=== PATIENT | male | born 1985 | race Caucasian/White ===

== ENCOUNTER 2018-06-02 17:01 | Emergency (ER) | payer MEDICAID ==
[~2018-06-02] VITALS: Ht 177.8 cm; Wt 75.7 kg
[2018-06-02 18:37] VITALS: BP 127/64
== END 2018-06-02 20:47 | disposition left against medical advice (07) ==
LOC: ER 17:01
DX: M79.601 Pain in right arm (principal); Z53.21 Procedure and treatment not carried out due to patient leaving prior to being seen by health care provider
CPT/HCPCS: 71046; 73030

== ENCOUNTER 2019-10-05 14:46 | Inpatient (IN) | payer MEDICAID ==
[~2019-10-05] VITALS: Ht 175.3 cm; Wt 79.6 kg
[2019-10-05 15:18] LABS: Urine Bacteria NONE SEEN /hpf (None Seen); Urine Blood 2+ /uL (Negative); Urine Specific Gravity 1.043 (1.001-1.035)
[2019-10-05 15:22] LABS: Basophils # (auto) 0.1 10 ^3/uL (0-0.2); Basophils % (auto) 2.2 % (0.0-2.0); Eosinophils # (auto) 0.1 10 ^3/uL (0-0.8); Eosinophils % (auto) 3.4 % (0.0-7.0); Lymphocytes # (auto) 0.7 10 ^3/uL (0.4-5.4); Monocytes # (auto) 0.6 10 ^3/uL (0-1.3); Monocytes % (auto) 16.3 % (0.0-12.0); Red Cell Distribution Width 14.1 % (11.8-14.3); White Blood Cell 3.5 10^3/uL (4.4-10.8)
[2019-10-05 15:24] LABS: Hemoglobin 12.8 g/dL (13.5-17.5); Lymphocytes % (auto) 19.7 % (10.0-50.0); Mean Corpuscular Hemoglobin 36.4 pg (28.0-32.0); Mean Corpuscular Hgb Conc. 34.7 g/dL (32.0-36.0); Mean Corpuscular Volume 104.8 fL (80.0-100.0); Neutrophils # (auto) 2.1 10 ^3/uL (1.6-8.6); Neutrophils % (auto) 58.4 % (37.0-80.0); Platelet Count (auto) 67 10^3/uL (140-450); Red Blood Cells 3.53 10^6/uL (4.5-5.90)
[2019-10-05 15:25] LABS: Urine WBC 1 /hpf (0 - 3)
[2019-10-05 15:26] LABS: Urine Hyaline Cast 0-1 /lpf (0 - 2); Urine Mucus FEW (None Seen)
[2019-10-05] MEDS ORDERED: SODIUM CHLORIDE 0.9% 1,000 ML IVB ONE (15:28)
[2019-10-05] MEDS ORDERED: ONDANSETRON HCL 4 MG/2 ML VIAL IV ONE (15:30)
[2019-10-05] MEDS ORDERED: KETOROLAC TROMETH 30 MG/ML 1ML VIAL IV ONE (15:30)
[2019-10-05 15:41] LABS: Albumin 3.6 g/dL (3.4-5.0); Calcium 8.7 mg/dL (8.5-10.1); Potassium 3.5 mmol/L (3.5-5.1)
[2019-10-05 15:45] LABS: Bilirubin, Total 0.6 mg/dL (0.2-1.0); Total Protein 7.6 g/dL (6.4-8.2)
[2019-10-05 15:53] LABS: Magnesium 1.6 mg/dL (1.6-2.6)
[2019-10-05 16:29] LABS: BUN/Creatinine Ratio 4.7
[2019-10-05] MEDS ORDERED: metroNIDAZOLE 500MG/100ML 100 ML IV ONE (16:30)
[2019-10-05] MEDS ORDERED: LORazepam 2MG/ML-1ML VIAL IV PRN ×2 (18:15→21:15)
[2019-10-05] MEDS ORDERED: PROMETHAZINE HCL 25 MG/ML 1ML IV PRN (18:15)
[2019-10-05] MEDS ORDERED: cefTRIAXone 1GM/50ML D5W 50 ML IV ONE (18:15)
[2019-10-05] MEDS ORDERED: MORPHINE SULF INJ 2 MG/ML SYRINGE 1ML IV PRN (18:15)
[2019-10-05] MEDS ORDERED: THIAMINE 100mg/ml INJ (200mg/2ml VIAL) IV ONE (18:15)
[2019-10-05] MEDS: SODIUM CHLORIDE 0.9% 1,000 ML IV SCH (18:36)
[2019-10-05] MEDS: MORPHINE SULF INJ 2 MG/ML SYRINGE 1ML IV PRN ×2 (19:10→23:33)
--- NOTE | 2019-10-05 19:34 | NUR ---
MS admit from ER Patient admitted to tele/MS. Patient oriented to primary RN, unit, room, bed, and unit policies regarding patient care and visiting hours. Patient weighed by bedscale and encouraged to call if they need something. All questions and concerns addressed, patient verbalized understanding. Safety precautions maintained bed is in lowest position and locked, bed rails 2x. Call light and bed side table are within reach.
[2019-10-05 20:00] VITALS: BP 129/85
--- NOTE | 2019-10-05 21:10 | NUR ---
Call back from hospitalist Received new orders. Orders inputed, will continue to monitor patient Q1 and PRN.
[2019-10-05] MEDS ORDERED: chlordiazePOXIDE HCL 25 MG CAP PO PRN (21:15)
[2019-10-05] MEDS ORDERED: FOLIC ACID 1 MG, MULTIPLE VITAMIN 10 ML, MAGNESIUM SULF SDV 50% 8 MEQ, THIAMINE INJ 100... INJ ONE ×5 (21:30)
[2019-10-05 22:02] VITALS: BP 129/85
[2019-10-05] MEDS: FAMOTIDINE (10MG/ML) 2ML VL IV SCH (23:34)
[2019-10-05] MEDS: metroNIDAZOLE 500MG/100ML 100 ML IV SCH (23:34)
[2019-10-06] MEDS: SODIUM CHLORIDE 0.9% 1,000 ML IV SCH ×4 (01:11→21:10)
[2019-10-06] MEDS ORDERED: THIAMINE 100mg/ml INJ (200mg/2ml VIAL) ONE (01:27)
--- NOTE | 2019-10-06 01:45 | NUR ---
Call back from hospitalist New orders received and inputed. Will continue to monitor patient Q1 and PRN.
[2019-10-06] MEDS: metroNIDAZOLE 500MG/100ML 100 ML IV SCH ×3 (05:06→22:00)
[2019-10-06 05:37] VITALS: BP 148/86
[2019-10-06 06:34] LABS: Basophils # (auto) 0 10 ^3/uL (0-0.2); Eosinophils # (auto) 0.1 10 ^3/uL (0-0.8); Lymphocytes # (auto) 0.4 10 ^3/uL (0.4-5.4); Monocytes # (auto) 0.4 10 ^3/uL (0-1.3); Platelet Count (auto) 45 10^3/uL (140-450); Red Cell Distribution Width 14.3 % (11.8-14.3)
[2019-10-06 06:36] LABS: Basophils % (auto) 1.4 % (0.0-2.0); Hematocrit 33.3 % (41.0-53.0); Hemoglobin 11.3 g/dL (13.5-17.5); Lymphocytes % (auto) 16.1 % (10.0-50.0); Mean Corpuscular Hemoglobin 36.1 pg (28.0-32.0); Mean Corpuscular Volume 106.2 fL (80.0-100.0); Monocytes % (auto) 16.1 % (0.0-12.0); Neutrophils # (auto) 1.6 10 ^3/uL (1.6-8.6); Neutrophils % (auto) 63.4 % (37.0-80.0); Nucleated Red Blood Cells % 0.1 %; Red Blood Cells 3.13 10^6/uL (4.5-5.90); White Blood Cell 2.5 10^3/uL (4.4-10.8)
[2019-10-06 06:52] LABS: Albumin 2.9 g/dL (3.4-5.0); Calcium 7.5 mg/dL (8.5-10.1); Potassium 3.5 mmol/L (3.5-5.1)
[2019-10-06 06:55] LABS: BUN/Creatinine Ratio 6.1; Bilirubin, Total 1.3 mg/dL (0.2-1.0); Total Protein 6.4 g/dL (6.4-8.2)
--- NOTE | 2019-10-06 08:06 | NUR ---
OPENING SHIFT NOTE Assumed care of patient. PT is awake and alert. No S/S of distress/SOB. Instructed on POC and to call for assist PRN, will continue to monitor for changes Q1hr and PRN. Safety precautions in place bed is in lowest position and locked, bed rails 2x. Call light and bedside table are within reach.
[2019-10-06 09:00] VITALS: BP 141/98
[2019-10-06] MEDS ORDERED: cefTRIAXone 1GM/50ML D5W 50 ML IV SCH (09:00)
[2019-10-06] MEDS ORDERED: FOLIC ACID 1 MG TAB PO SCH (10:00)
[2019-10-06] MEDS ORDERED: CYANOCOBALAMIN 500 MCG TAB PO SCH (10:00)
[2019-10-06] MEDS ORDERED: THIAMINE 100mg/ml INJ (200mg/2ml VIAL) IV SCH (10:00)
[2019-10-06] MEDS: FAMOTIDINE (10MG/ML) 2ML VL IV SCH ×2 (11:07→22:00)
[2019-10-06] MEDS: MORPHINE SULF INJ 2 MG/ML SYRINGE 1ML IV PRN (11:08)
[2019-10-06 13:00] VITALS: BP 135/77
[2019-10-06] MEDS ORDERED: chlordiazePOXIDE HCL 25 MG CAP PO ONE (13:00)
[2019-10-06] MEDS ORDERED: GAB100C PO ×2 (13:42)
[2019-10-06] MEDS ORDERED: FOLI1TAB6 PO ×2 (13:42)
[2019-10-06] MEDS ORDERED: THIA50CA PO ×2 (13:42)
[2019-10-06] MEDS ORDERED: CHL10C PO ×2 (13:42)
[2019-10-06] MEDS ORDERED: METR500T PO ×2 (13:42)
[2019-10-06] MEDS ORDERED: LEVO500T21 PO ×2 (13:42)
[2019-10-06] MEDS ORDERED: GABAPENTIN 100 MG CAP PO ONE (13:45)
--- NOTE | 2019-10-06 15:44 | NUR ---
AT THE BEDSIDE COVERING FOR PRIMARY RN WILL. DR. Juan Luis GONZALEZ AT THE BEDSIDE. PER DR. GONZALEZ PATIENT MUST TOLERATE SOFT DIET AND BE AFEBRILE BEFORE DISCHARGE. IF PATIENT HAS A FEVER AND/OR DOES NOT TOLERATE SOFT DIET, HOLD DISCHARGE AND CONTACT DR. ANDREW. WILL ENDORSE TO PRIMARY RN.
[2019-10-06 17:00] VITALS: BP 140/94
[2019-10-06] MEDS: ACETAMINOPHEN 325 MG TAB PO PRN (17:00)
--- NOTE | 2019-10-06 17:00 | NUR ---
NOTIFIED MD Clara ANDREW OF ELEVATED TEMPERATURE. ADMINISTERED PRN MEDICATION PER ORDERS AND INITIATED COOLING MEASURES. WILL REASSESS PT.
[2019-10-06] MEDS: chlordiazePOXIDE HCL 25 MG CAP PO SCH (17:51)
--- NOTE | 2019-10-06 18:39 | NUR ---
REASSESSED PT TEMP IS 100.0. PT REPORTED THAT HE WAS NON COMPLIANT WITH COOLING MEASURES. STATED THAT HE ONLY KEPT ICE PACKS APPLIED FOR "15 MINUTES". WILL ENDORSE TO NIGHT NURSE.
--- NOTE | 2019-10-06 19:30 | NUR ---
Elevated temp 100.6F Cooling measures continued, Will continue to monitor patient Q1 and PRN.
--- NOTE | 2019-10-06 20:20 | NUR ---
Temperature assessment 99.8F. Will continue cooling measures and monitor Q1 and PRN. Left a voicemail to Dr. Tor Garsia in regards to persistent elevated temp, holding off on discharge until verification received that its ok to discharge at this time . Awaiting call back. At this time patient is able to tolerate soft diet and has no s/s of distress or SOB. Will continue to monitor patient Q1 and PRN.
[2019-10-06 22:00] VITALS: BP 150/99
--- NOTE | 2019-10-06 22:18 | NUR ---
Received call back from Dr. Tor Garsia Per MD will hold discharge until morning, ordered to continue Tylenol 650mg Q4 for elevated temperature and to administer NS 1L, 1 bolus at this time, orders inputed. Will continue to monitor patient Q1 and PRN.
[2019-10-06] MEDS ORDERED: SODIUM CHLORIDE 0.9% 1,000 ML IV ONE (22:30)
[2019-10-07] MEDS: chlordiazePOXIDE HCL 25 MG CAP PO SCH ×2 (00:12→06:00)
[2019-10-07] MEDS: ACETAMINOPHEN 325 MG TAB PO PRN (00:14)
--- NOTE | 2019-10-07 00:14 | NUR ---
Elevated temperature 100.4. Medicated per MD orders and continued cooling measures. Will continue to monitor patient Q1 and PRN.
--- NOTE | 2019-10-07 01:15 | NUR ---
Temperature Assessment 99.6 F, cooling measures continued, will continue to monitor Q1 and PRN
[2019-10-07] MEDS: SODIUM CHLORIDE 0.9% 1,000 ML IV SCH (03:31)
[2019-10-07 05:00] VITALS: BP 144/98
--- NOTE | 2019-10-07 05:00 | NUR ---
At this time patient temperature is within baseline 98.6F. Will continue to monitor Q1 and PRN.
[2019-10-07] MEDS: metroNIDAZOLE 500MG/100ML 100 ML IV SCH (06:00)
--- NOTE | 2019-10-07 06:00 | NUR ---
IV removal IV DC'd with sterile technique, catheter fully intact. Pressure dressing applied to site. Patient tolerated procedure well. Awaiting discharge.
--- NOTE | 2019-10-07 08:20 | NUR ---
Discharge instructions given as ordered. Encourage to follow up with PMD as instructed. All questions and concerns addressed. Patient verbalized understanding. Medication reconciliation form completed and copy given to patient. Home medications held in Pharmacy returned to patient, and needed vaccines given. IV removed with catheter intact, pressure dressing applied, putnam catheter removed. Telemetry unit returned to ICU. Patient taken to vehicle via wheelchair with all personal belongings, accompanied by staff and family member. No distress noted at time of departure. Addendum: 10/07/19 at 0843 by REECE JOEL RN Discharge instructions given as ordered. Encourage to follow up with PMD as instructed. All questions and concerns addressed. Patient verbalized understanding. Medication reconciliation form completed and copy given to patient. IV removed with catheter intact, pressure dressing applied. Patient left with all personal belongings. No distress noted at time of departure.
--- NOTE | 2019-10-07 11:00 | NUR ---
Assessment Patient discharge prior to assessment. Regarding SS consult for home health safety evaluation. faxed clinical information to [facility]. Per [place] with [facility] patient has been accepted and service to start within 24-48hrs upon d/c day. Obtain authorization from [facility] [id number].
== END 2019-10-07 02:23 | disposition home health service (06) | DRG 249 ==
LOC: ER 14:46 → OVERFLOW 14:47 → CENTRAL 19:30
PROVIDERS: ADMIT Internal Medicine; ATTEND Internal Medicine
DX: K52.9 Noninfective gastroenteritis and colitis, unspecified (principal); K85.20 Alcohol induced acute pancreatitis without necrosis or infection; D61.818 Other pancytopenia; K75.81 Nonalcoholic steatohepatitis (NASH); F17.210 Nicotine dependence, cigarettes, uncomplicated; D50.8 Other iron deficiency anemias; F10.20 Alcohol dependence, uncomplicated; Z82.49 Family history of ischemic heart disease and other diseases of the circulatory system; Z87.442 Personal history of urinary calculi; Z79.899 Other long term (current) drug therapy; Y90.9 Presence of alcohol in blood, level not specified; R74.0 Nonspecific elevation of levels of transaminase and lactic acid dehydrogenase [LDH]
CPT/HCPCS: 36415; 71046; 74176; 76705; 80053; 81001; 82150; 83690; 83735; 85025; 96361; 96365; 96367; 96375; G0378; J0696; J1885; J2405; J3490

== ENCOUNTER 2019-12-18 14:57 | Emergency (ER) | payer MEDICAID ==
[~2019-12-18] VITALS: Ht 177.8 cm; Wt 81.6 kg
[~2019-12-18 14:57] MED LIST: CHL10C PO; FOLI1TAB6 PO; GAB100C PO; LEVO500T21 PO; METR500T PO; THIA50CA PO
[2019-12-18] MEDS ORDERED: SODIUM CHLORIDE 0.9% 1,000 ML IV ONE ×2 (15:05)
[2019-12-18] MEDS ORDERED: ONDANSETRON HCL 4 MG/2 ML VIAL IV ONE (15:15)
[2019-12-18] MEDS ORDERED: chlordiazePOXIDE HCL 5 MG CAP PO ONE (15:15)
[2019-12-18] MEDS ORDERED: THIAMINE 100mg/ml INJ (200mg/2ml VIAL) IV ONE (15:15)
[2019-12-18 15:43] LABS: Basophils # (auto) 0 10 ^3/uL (0-0.2); Basophils % (auto) 0.5 % (0.0-2.0); Eosinophils # (auto) 0 10 ^3/uL (0-0.8); Eosinophils % (auto) 0.3 % (0.0-7.0); Hematocrit 45.8 % (41.0-53.0); Hemoglobin 15.6 g/dL (13.5-17.5); Lymphocytes # (auto) 1.4 10 ^3/uL (0.4-5.4); Lymphocytes % (auto) 15.2 % (10.0-50.0); Mean Corpuscular Hemoglobin 30.9 pg (28.0-32.0); Mean Corpuscular Hgb Conc. 34.2 g/dL (32.0-36.0); Mean Corpuscular Volume 90.6 fL (80.0-100.0); Monocytes # (auto) 0.7 10 ^3/uL (0-1.3); Monocytes % (auto) 7.6 % (0.0-12.0); Neutrophils # (auto) 6.9 10 ^3/uL (1.6-8.6); Neutrophils % (auto) 76.4 % (37.0-80.0); Nucleated Red Blood Cells % 0.8 %; Platelet Count (auto) 276 10^3/uL (140-450); Red Blood Cells 5.06 10^6/uL (4.5-5.90); Red Cell Distribution Width 13.2 % (11.8-14.3)
[2019-12-18 16:48] LABS: Albumin 3.8 g/dL (3.4-5.0); Calcium 9.3 mg/dL (8.5-10.1); Potassium 3.9 mmol/L (3.5-5.1)
[2019-12-18 16:51] LABS: BUN/Creatinine Ratio 10.2; Total Protein 7.6 g/dL (6.4-8.2)
[2019-12-18 21:12] LABS: Urine Bacteria FEW /hpf (None Seen); Urine Blood Negative /uL (Negative); Urine Mucus FEW (None Seen); Urine WBC 1 /hpf (0 - 3)
[2019-12-18] MEDS ORDERED: LORazepam 2MG/ML-1ML VIAL IV ONE (21:15)
[2019-12-19 01:00] VITALS: BP 120/74
== END 2019-12-19 00:44 | disposition home or self-care (01) ==
LOC: ER 14:57 → EDBD 14:57 → ER 12-19 00:44
DX: E86.0 Dehydration (principal); F10.10 Alcohol abuse, uncomplicated; F17.210 Nicotine dependence, cigarettes, uncomplicated; Z87.442 Personal history of urinary calculi
CPT/HCPCS: 36415; 71046; 80053; 80320; 81001; 85025; 96361; 96374; 96375; 99285; J2060; J2405; J3411; J7030

== ENCOUNTER 2020-05-23 14:26 | Emergency (ER) | payer MEDICAID ==
[~2020-05-23] VITALS: Ht 175.3 cm; Wt 88.5 kg
[2020-05-23 17:08] LABS: Basophils # (auto) 0 10 ^3/uL (0-0.2); Basophils % (auto) 0.2 % (0.0-2.0); Eosinophils # (auto) 0 10 ^3/uL (0-0.8); Hematocrit 48.7 % (41.0-53.0); Hemoglobin 17.3 g/dL (13.5-17.5); Lymphocytes # (auto) 1.4 10 ^3/uL (0.4-5.4); Lymphocytes % (auto) 17.3 % (10.0-50.0); Mean Corpuscular Hemoglobin 32.4 pg (28.0-32.0); Mean Corpuscular Hgb Conc. 35.5 g/dL (32.0-36.0); Mean Corpuscular Volume 91.5 fL (80.0-100.0); Monocytes # (auto) 0.4 10 ^3/uL (0-1.3); Monocytes % (auto) 5.4 % (0.0-12.0); Neutrophils % (auto) 77.1 % (37.0-80.0); Platelet Count (auto) 272 10^3/uL (140-450); Red Blood Cells 5.32 10^6/uL (4.5-5.90); Red Cell Distribution Width 12.4 % (11.8-14.3); White Blood Cell 7.8 10^3/uL (4.4-10.8)
[2020-05-23 17:25] LABS: Albumin 4.7 g/dL (3.4-5.0); Calcium 9.7 mg/dL (8.5-10.1); Potassium 4.5 mmol/L (3.5-5.1)
[2020-05-23 17:29] LABS: BUN/Creatinine Ratio 11.7; Bilirubin, Total 0.8 mg/dL (0.2-1.0); Total Protein 8.4 g/dL (6.4-8.2)
[2020-05-23 18:21] VITALS: BP 133/92
== END 2020-05-23 18:22 | disposition home or self-care (01) ==
LOC: ER 14:26
DX: R10.9 Unspecified abdominal pain (principal); F17.210 Nicotine dependence, cigarettes, uncomplicated; F12.10 Cannabis abuse, uncomplicated; Z87.442 Personal history of urinary calculi
CPT/HCPCS: 36415; 74176; 80053; 85025

== ENCOUNTER 2020-06-02 08:50 | Emergency (ER) | payer MEDICAID ==
[~2020-06-02] VITALS: Ht 175.3 cm; Wt 86.2 kg
[2020-06-02 08:53] VITALS: BP 148/99
[2020-06-02 09:50] LABS: Basophils # (auto) 0 10 ^3/uL (0-0.2); Basophils % (auto) 0.3 % (0.0-2.0); Eosinophils # (auto) 0.1 10 ^3/uL (0-0.8); Eosinophils % (auto) 1.1 % (0.0-7.0); Hematocrit 49.5 % (41.0-53.0); Hemoglobin 16.7 g/dL (13.5-17.5); Lymphocytes # (auto) 2.2 10 ^3/uL (0.4-5.4); Lymphocytes % (auto) 32.8 % (10.0-50.0); Mean Corpuscular Hgb Conc. 33.8 g/dL (32.0-36.0); Mean Corpuscular Volume 91.8 fL (80.0-100.0); Monocytes # (auto) 0.5 10 ^3/uL (0-1.3); Monocytes % (auto) 7.4 % (0.0-12.0); Neutrophils # (auto) 3.9 10 ^3/uL (1.6-8.6); Neutrophils % (auto) 58.4 % (37.0-80.0); Nucleated Red Blood Cells % 0.1 %; Platelet Count (auto) 274 10^3/uL (140-450); Red Blood Cells 5.39 10^6/uL (4.5-5.90); Red Cell Distribution Width 12.5 % (11.8-14.3); White Blood Cell 6.6 10^3/uL (4.4-10.8)
[2020-06-02 09:59] LABS: Albumin 4.2 g/dL (3.4-5.0); Calcium 9.6 mg/dL (8.5-10.1)
[2020-06-02 10:03] LABS: BUN/Creatinine Ratio 13.3; Bilirubin, Total 0.6 mg/dL (0.2-1.0); Total Protein 7.5 g/dL (6.4-8.2)
[2020-06-02 10:05] LABS: INR 1.07 (0.9-1.15); Partial Thromboplastin Time 27.4 sec (23.0-31.2)
== END 2020-06-02 15:29 | disposition home or self-care (01) ==
LOC: ER 08:50
DX: R10.9 Unspecified abdominal pain (principal); R11.2 Nausea with vomiting, unspecified; F17.210 Nicotine dependence, cigarettes, uncomplicated; Z79.899 Other long term (current) drug therapy
CPT/HCPCS: 36415; 74176; 80053; 83690; 85025; 85610; 85730

== ENCOUNTER 2022-10-17 02:14 | Emergency (ER) | payer MEDICAID ==
[~2022-10-17] VITALS: Ht 175.3 cm; Wt 67.2 kg
[~2022-10-17 02:14] MED LIST changes: +FOLI-119 PO; -FOLI1TAB6 PO; -LEVO500T21 PO; +LEVO500T31 PO
[2022-10-17 03:12] LABS: Basophils # (auto) 0 10 ^3/uL (0-0.2); Basophils % (auto) 0.5 % (0.0-2.0); Eosinophils # (auto) 0.2 10 ^3/uL (0-0.8); Eosinophils % (auto) 2.7 % (0.0-7.0); Hemoglobin 14.3 g/dL (13.5-17.5); Lymphocytes % (auto) 30.3 % (10.0-50.0); Mean Corpuscular Hemoglobin 31.7 pg (28.0-32.0); Mean Corpuscular Hgb Conc. 34.8 g/dL (32.0-36.0); Monocytes # (auto) 0.4 10 ^3/uL (0-1.3); Monocytes % (auto) 5.9 % (0.0-12.0); Neutrophils % (auto) 60.6 % (37.0-80.0); Nucleated Red Blood Cells % 0.1 %; Red Cell Distribution Width 12.2 % (11.8-14.3); White Blood Cell 6.6 10^3/uL (4.4-10.8)
[2022-10-17 03:30] LABS: Albumin 4.4 g/dL (3.4-5.0); Potassium 3.4 mmol/L (3.5-5.1)
[2022-10-17 03:33] LABS: BUN/Creatinine Ratio 12.6 (10.0-20.0); Bilirubin, Total 0.8 mg/dL (0.2-1.0); Total Protein 6.8 g/dL (6.4-8.2)
[2022-10-17 04:37] LABS: Urine WBC None Seen /hpf (0 - 3)
[2022-10-17 05:09] LABS: Urine Bacteria FEW /hpf (None Seen); Urine Blood Negative /uL (Negative); Urine Specific Gravity 1.002 (1.001-1.035)
[2022-10-17 08:00] VITALS: BP 98/52
[2022-10-17] MEDS ORDERED: PANT40TA2 PO (08:00)
[2022-10-17] MEDS ORDERED: POTASSIUM EFFERVESENT TAB 25 MEQ PO ONE (08:15)
[2022-10-17] MEDS ORDERED: PANTOPRAZOLE 40 MG/10 ML VIAL INJ IV ONE (08:15)
[2022-10-17] MEDS ORDERED: PANTOPRAZOLE 40 MG TAB PO ONE (08:15)
== END 2022-10-17 09:06 | disposition home or self-care (01) ==
LOC: ER 02:14
DX: K29.70 Gastritis, unspecified, without bleeding (principal); Z87.891 Personal history of nicotine dependence; Z79.2 Long term (current) use of antibiotics; Z79.899 Other long term (current) drug therapy
CPT/HCPCS: 36415; 74176; 80053; 81001; 83690; 85025

== ENCOUNTER 2024-07-01 12:34 | Emergency (ER) | payer MEDICAID ==
[~2024-07-01] VITALS: Ht 175.3 cm; Wt 64.6 kg
[~2024-07-01 12:34] MED LIST changes: +PANT40TA2 PO
[2024-07-01 13:14] LABS: Urine Bacteria None Seen /hpf (None Seen)
[2024-07-01 13:26] LABS: Urine Blood Negative /uL (Negative); Urine Clarity Clear (Clear); Urine Color Light-Yellow (Yellow); Urine Protein, UAD Negative (Negative); Urine Specific Gravity 1.015 (1.001-1.035); Urine Squamous Epithelial Cell None Seen /hpf (<5); Urine Urobilinogen Normal (Negative); Urine WBC < 1 /HPF (0-3); Urine pH 5.5 (5.0-9.0)
--- NOTE | 2024-07-01 17:17 | DVH ---
CT abdomen and pelvis without contrast INDICATION: bilat upper quad and flank pain TECHNIQUE: Serial axial images were performed through the abdomen and pelvis and then reformatted in the sagittal and coronal plane. All CT scans at this medical facility are performed using dose modulation techniques as appropriate t o a performed exam including the following: Automated exposure control was utilized; adjustment of the MA and/or KvP according to patient size; a nd use of iterative reconstruction technique. FINDINGS: Liver and spleen are normal in size without focal mass. No renal masses, stones or hydronephrosis. No masses or enlargement of the adrenal glands or pancreas. No biliary dilatation. No gallstones. No distention of bowel loops to suggest mechanical obstruction of bowel. The appendix is normal in ap pearance. No free fluid. Within the pelvis, bladder is smooth walled without stones. No abnormal masses or fluid collections. IMPRESSION: 1. No evidence of urinary tract calculi or obstruction. Limited evaluation of the kidneys and bowel d ue to lack of IV contrast Computed Tomographic Radiation Dosimetry Report: Total CTDI vol = 5 mGy Total DLP = 258 mGy-cm Low dose protocols were performed.
--- NOTE | 2024-07-01 17:44 | DVH ---
EXAM: US GALLBLADDER CLINICAL HISTORY: RUQ pain TECHNIQUE: Grayscale and limited color flow doppler ultrasound of the right upper quadrant is perfor med. COMPARISON: None Findings: Liver measures 12.8 cm in length with normal echotexture and contour. No evidence of focal hepatic le sions or intra- or extrahepatic ductal dilatation. Common bile duct measures 0.1 cm in diameter. Norm al hepatopedal flow noted within the portal vein. No perihepatic free fluid is noted. Gallbladder appears within normal limits with gallbladder wall thickness measuring 0.1 cm. 0.5 cm non vascular gallbladder polyp versus tumefactive sludge. No evidence of shadowing calculi, biliary sludg e or pericholecystic fluid. Negative sonographic Zazueta's sign. Pancreas only partially visualized due to overlying bowel gas but is otherwise unremarkable. Right kidney measures 10.3 cm with normal contours, echotexture and cortical thickness. No evidence o f hydronephrosis, calculi, cystic or solid renal lesions. Partially visualized inferior vena cava unremarkable. Impression: 1. No evidence of acute right upper quadrant abnormalities. 2. 0.5 cm nonvascular gallbladder polyp versus tumefactive sludge
--- NOTE | 2024-07-01 18:01 | ED.PDOC ---
GI ASSESSMENT HPI Comments [id number] with a PMHx of Protonix use, endoscopy and "stomach issues," and a social Hx of vape and marijuana use, presents to the ED with RUQ abdominal pain today. Patient comments on having a Hx of abdominal issues in the past with fatty food for the past x2-3 years and is following up with outpatient care with GI group specialist on issues which he has undergone multiple ultrasounds and CT scans but all results have came back unremarkable. Patient also complains of LUQ pain for some time now. RUQ region feels "swollen" and patient mentions losing [id number] lbs in the past 3 weeks due to only consuming chicken broth as that is the only tolerant food he can intake with the pain. At this time patient denies any nausea, vomiting, diarrhea, fever, chills, constipation. Chief Complaint: Abdominal Pain Time Seen by MD: 16:49 Primary Care Provider: UNK Reviewed Notes: Nurses Notes, Medications, Allergies Allergies: Coded Allergies: NO KNOWN ALLERGIES (Unverified , 06/02/18) Home Meds Active Scripts Pantoprazole Sodium Sesquihydr (Protonix) 40 Mg Tab, 40 MG PO DAILY for 10 Days, #10 TAB Prov:QUEENIE HATHAWAY MD 10/17/22 Gabapentin (Gabapentin) 100 Mg Cap, 100 MG PO BID, #14 TAB Prov:SHERYL ANDREW MD 10/06/19 Thiamine Hcl (Thiamine) 50 Mg Cap, 50 MG PO DAILY, #30 CAP Prov:SHERYL ANDREW MD 10/06/19 Folic Acid (Folic Acid) 1 Mg Tab, 1 MG PO DAILY, #30 TAB Prov:SHERYL ANDREW MD 10/06/19 Metronidazole (Flagyl) 500 Mg Tab, 500 MG PO Q8H, #21 TAB Prov:SHERYL ANDREW MD 10/06/19 Levofloxacin (Levaquin) 500 Mg Tab, 500 MG PO DAILY, #7 TAB Prov:SHERYL ANDREW MD 10/06/19 Chlordiazepoxide Hcl (Ni-1) (I (Librium) 10 Mg Cap, 1 DOSE PO UD, #35 CAP 30mg [id number] 30mg [id number] 20mg [id number] 20mg [id number] 10mg [id number] 10mg [id number] Prov:SHERYL ANDREW MD 10/06/19 Information Source: Patient Mode of Arrival: Ambulatory Timing: Months Duration: Since onset Quality: Aching Vomitus: None Stool: Normal Severity: Moderate Recent: None Recent Hx of: None Pain Location: RUQ, LUQ Modifying Factors: Nothing Associated sign and symptoms: Abdominal Pain Past Medical History PAST MEDICAL HISTORY: Kidney Stones Surgical History: Denies all surgeries Family History Family History: Reviewed,noncontributory to illness, Family hx of HTN Social History Smoker: Quit Less Than 1 Year, Cigarettes, Other Alcohol: Sober Drugs: Marijuana Lives In: Home Constitutional: denies: chills, diaphoresis, fatigue, fever, malaise, sweats, weakness, others EENTM: denies: blurred vision, double vision, ear bleeding, ear discharge, ear drainage, ear pain, ear ringing, eye pain, eye redness, hearing loss, mouth pain, mouth swelling, nasal discharge, nose bleeding, nose congestion, nose pain, photophobia, tearing, throat pain, throat swelling, voice changes, others Respiratory: denies: cough, hemoptysis, orthopnea, SOB at rest, shortness of breath, SOB with excertion, stridor, wheezing, others Cardiovascular: denies: chest pain, dizzy spells, diaphoresis, Dyspnea on exertion, edema, irregular heart beat, left arm pain, lightheadedness, palpitations, PND, syncope, others Gastrointestinal: reports: abdominal pain; denies: abdomen distended, blood streaked bowels, constipated, diarrhea, dysphagia, difficulty swallowing, hematemesis, melena, nausea, poor appetite, poor fluid intake, rectal bleeding, rectal pain, vomiting, others Genitourinary: denies: burning, dysuria, flank pain, frequency, hematuria, incontinence, penile discharge, penile sore, pain, testicle pain, testicle swelling, urgency, others Neurological: denies: dizziness, fainting, headache, left sided numbness, left sided weakness, numbness, paresthesia, pre-existing deficit, right sided numbness, right sided weakness, seizure, speech problems, tingling, tremors, weakness, others Musculoskeletal: denies: back pain, gout, joint pain, joint swelling, muscle pain, muscle stiffness, neck pain, others Integumetry: denies: bruises, change in color, change in hair/nails, dryness, laceration, lesions, lumps, rash, wounds, others Allergic/Immunocompromised: denies: Difficulty Healing, Frequent Infections, Hives, Itching, others Hematologic/Lymphatic: denies: anemia, blood clots, easy bleeding, easy bruising, swollen glands, others Endocrine: reports: unexplained weight loss; denies: excessive hunger, excessive sweating, excessive thirst, excessive urination, flushing, intolerance to cold, intolerance to heat, unexplained weight gain, others Psychiatric: denies: anxiety, bipolar disorder, depression, hopeless, panic disorder, schizophrenia, sleepless, suicidal, others All Other Systems: Reviewed and Negative Physical Exam General Appearance: No Apparent Distress, Other HEENT: Other (Pupils symmetric, no facial asymmetry, moist mucous membranes) Neck: Full Range of Motion, Normal Inspection Respiratory: Lungs Clear, No Accessory Muscle Use, No Respiratory Distress, Normal Breath Sounds Cardiovascular: No Edema, No JVD, Regular Rate/Rhythm Breast Exam: Deferred Gastrointestinal: Soft, Tenderness (Right upper quadrant and right upper flank tenderness to deep palpation. Nontender to percussion. Negative Zazueta's sign. No rebound or guarding.) Genitalia: Deferred Pelvic: Deferred Rectal: Deferred Extremities: Normal inspection, Normal range of motion, Non-tender, No pedal edema Neurologic: Alert (Oriented x4), Normal Affect, Normal Mood, Other (Ambulatory without difficulty. No gross focal deficit.) Cerebellar Function: NOT DONE Reflexes: NOT DONE Skin: Dry, Normal Color, Warm Lymphatic: NOT DONE Was a procedure done? Was a procedure done?: No GI differential Dx Differential Diagnosis: Cholangitis, Cholecystitis, Constipation, Diverticular disease, Esophagitis, Gastroenteritis, Hepatitis, Inflammatory BD, Pancreatitis, UTI, Dehydration, Electrolyte Imbalance, Food Poisoning, Bacterial, Parasitic, Viral, Impaction, Malnutrition, Renal Failure, Ischemic Bowel, Stress Ulcer, Kidney Stone X-Ray, Labs, Meds, VS Vital Signs Date Time Temp Pulse Resp B/P (MAP) Pulse Ox O2 Delivery O2 Flow Rate FiO2 07/01/24 18:26 62 16 99 Room Air 07/01/24 18:26 98.1 62 16 118/62 (80) 99 98.1 07/01/24 12:44 98.2 60 16 136/72 (93) 99 Lab Test 07/01/24 17:58 07/01/24 13:12 Range/Units White Blood Count 6.2 4.4-10.8 10^3/uL Red Blood Count 5.05 4.5-5.90 10^6/uL Hemoglobin 16.2 13.5-17.5 g/dL Hematocrit 46.1 41.0-53.0 % Mean Corpuscular Volume 91.4 80.0-100.0 fL Mean Corpuscular Hemoglobin 32.1 H 28.0-32.0 pg Mean Corpuscular Hemoglobin Concent 35.1 32.0-36.0 g/dL Red Cell Distribution Width 12.5 11.8-14.3 % Platelet Count 182 140-450 10^3/uL Mean Platelet Volume 8.5 6.9-10.8 fL Neutrophils (%) (Auto) 68.9 37.0-80.0 % Lymphocytes (%) (Auto) 25.1 10.0-50.0 % Monocytes (%) (Auto) 5.4 0.0-12.0 % Eosinophils (%) (Auto) 0.3 0.0-7.0 % Basophils (%) (Auto) 0.3 0.0-2.0 % Neutrophils # (Auto) 4.3 1.6-8.6 10 ^3/uL Lymphocytes # (Auto) 1.6 0.4-5.4 10 ^3/uL Monocytes # (Auto) 0.3 0-1.3 10 ^3/uL Eosinophils # (Auto) 0 0-0.8 10 ^3/uL Basophils # (Auto) 0 0-0.2 10 ^3/uL Nucleated Red Blood Cells 0.2 % Sodium Level 140 136-145 mmol/L Potassium Level 4.4 3.5-5.1 mmol/L Chloride Level 102 98-107 mmol/L Carbon Dioxide Level 29 20-31 mmol/L Anion Gap 9 5-15 Blood Urea Nitrogen 22 9-23 mg/dL Creatinine 1.23 0.700-1.30 mg/dL Glomerular Filtration Rate Calc 76 >90 mL/min BUN/Creatinine Ratio 17.9 10.0-20.0 Serum Glucose 83 74-106 mg/dL Calcium Level 11.2 H 8.7-10.4 mg/dL Total Bilirubin 1.1 H 0.2-1.0 mg/dL Aspartate Amino Transferase (AST) 12 L 13-40 U/L Alanine Aminotransferase (ALT) 28 7-40 U/L Alkaline Phosphatase 75 46-116 U/L Total Protein 7.4 5.7-8.2 g/dL Albumin 5.5 H 3.2-4.8 g/dL Lipase 52 12-53 U/L Urine Color Light-yellow Yellow Urine Clarity Clear Clear Urine pH 5.5 5.0-9.0 Urine Specific [place] 1.015 1.001-1.035 Urine Protein Negative Negative Urine Ketones Negative Negative Urine Blood Negative Negative /uL Urine Nitrite Negative Negative Urine Bilirubin Negative Negative Urine Urobilinogen Normal Negative mg/dL Urine Leukocyte Esterase Negative Negative /uL Urine RBC None seen 0 - 3 /hpf Urine Microscopic WBC < 1 0-3 /HPF Urine Squamous Epithelial Cells None seen <5 /hpf Urine Bacteria None seen None Seen /hpf Urine Glucose Normal Normal mg/dL Current Medications Medications (Trade) Dose Ordered Sig/Yvonne Route Start Time Stop Time Status Last Admin Acetaminophen/ Hydrocodone Bitart ([place] 5/325MG Tab) 2 tab ONCE ONCE PO 07/01/24 17:00 07/01/24 17:02 DC 07/01/24 18:25 [place] [address] Ph: [phone] DIAGNOSTIC IMAGING Diagnostic Imaging Report : [id number] Signed PATIENT: NORA SILVERMAN ACCT: [id number] UNIT: [id number] : 1985 LOC: ER ROOM / BED: / AGE / SEX: 39 / M ADM STATUS: REG ER SERVICE 1700 ORDERING PHYSICIAN: AMAN PARRA MD PROCEDURE(s): ABPL - CT AB PEL WO CON-NO ORAL OR IV REASON: bilat upper quad and flank pain ORDER NUMBER(s): [id number], ACCESSION NUMBER(s): [id number] CT abdomen and pelvis without contrast INDICATION: bilat upper quad and flank pain TECHNIQUE: Serial axial images were performed through the abdomen and pelvis and then reformatted in the sagittal and coronal plane. All CT scans at this medical facility are performed using dose modulation techniques as appropriate to a performed exam including the following: Automated exposure control was utilized; adjustment of the MA and/or KvP according to patient size; and use of iterative reconstruction technique. FINDINGS: Liver and spleen are normal in size without focal mass. No renal masses, stones or hydronephrosis. No masses or enlargement of the adrenal glands or pancreas. No biliary dilatation. No gallstones. No distention of bowel loops to suggest mechanical obstruction of bowel. The appendix is normal in appearance. No free fluid. Within the pelvis, bladder is smooth walled without stones. No abnormal masses or fluid collections. IMPRESSION: 1. No evidence of urinary tract calculi or obstruction. Limited evaluation of the kidneys and bowel due to lack of IV contrast Computed Tomographic Radiation Dosimetry Report: Total CTDI vol = 5 mGy Total DLP = 258 mGy-cm Low dose protocols were performed. ATED BY: JACKI RIVERA MD DICTATED DATE/TIME: 07/01/241714 SIGNED BY: JACKI RIVERA MD SIGNED DATE/TIME: 07/01/241714 CC: [place] [address] Ph: [phone] DIAGNOSTIC IMAGING Diagnostic Imaging Report : [id number] Signed PATIENT: NORA SILVERMAN ACCT: [id number] UNIT: [id number] : 1985 LOC: ER ROOM / BED: / AGE / SEX: 39 / M ADM STATUS: REG ER SERVICE 99 ORDERING PHYSICIAN: AMAN PARRA MD PROCEDURE(s): GBUS - GALLBLADDER REASON: RUQ pain ORDER NUMBER(s): [id number], ACCESSION NUMBER(s): [id number] EXAM: US GALLBLADDER CLINICAL HISTORY: RUQ pain TECHNIQUE: Grayscale and limited color flow doppler ultrasound of the right upper quadrant is performed. COMPARISON: None Findings: Liver measures 12.8 cm in length with normal echotexture and contour. No ev idence of focal hepatic lesions or intra- or extrahepatic ductal dilatation. Common bile duct measures 0.1 cm in diameter. Normal hepatopedal flow noted within the portal vein. No perihepatic free fluid is noted. Gallbladder appears within normal limits with gallbladder wall thickness measuring 0.1 cm. 0.5 cm nonvascular gallbladder polyp versus tumefactive sludge. No evidence of shadowing calculi, biliary sludge or pericholecystic fluid. Negative sonographic Zazueta's sign. Pancreas only partially visualized due to overlying bowel gas but is otherwise unremarkable. Right kidney measures 10.3 cm with normal contours, echotexture and cortical thickness. No evidence of hydronephrosis, calculi, cystic or solid renal lesions. Partially visualized inferior vena cava unremarkable. Impression: 1. No evidence of acute right upper quadrant abnormalities. 2. 0.5 cm nonvascular gallbladder polyp versus tumefactive sludge ATED BY: AMIE RESTREPO DO DICTATED DATE/TIME: 07/01/241741 SIGNED BY: AMIE RESTREPO DO SIGNED DATE/TIME: 07/01/241741 CC: X-Ray, Labs, Meds, VS Comment 39 yo M with h/o chronic intermittent abdominal pain c/o RUQ pain VS unremarkable Exam remarkable for right upper quadrant and right upper flank tenderness to palpation. Negative Zazueta's sign CT abdomen and pelvis remarkable Right upper quadrant ultrasound unremarkable CBC unremarkable, CMP remarkable for calcium 11.2, total bilirubin 1.1, AST 12, albumin 5.5, UA negative, no other abnormalities of acute significance Patient treated with the following in the ED: [place] 5/325 mg p.o. On re-evaluation, patient states pain has improved. Vitals are stable. He t olerated p.o. fluids. Repeat abdominal exam was benign. Hospitalization was considered, however patient had rapid improvement of symptoms with treatment in the ED, and workup was essentially unremarkable. 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 Patient was advised to we contacted the GI specialist he saw at [place]. RX: Bentyl Time of 1ST Reevaluation: 16:59 Reevaluation 1ST: Unchanged Time of 2ND Reevaluation: 18:57 Reevaluation 2ND: Improved Patient Education/Counseling: Diagnosis, Treatment, Prognosis Family Education/Counseling: No Family Present Departure 1 Departure Time of Disposition: 18:57 Impression: Primary Impression: Abdominal pain Qualified Codes: R10.11 - Right upper quadrant pain Disposition: 01 HOME / SELF CARE / HOMELESS Condition: Stable Additional Instructions: Your blood and urine tests were unremarkable. Your CT and ultrasound were unremarkable. Please see reports below. I have prescribed pain medication. Continue protonix. Follow up with your GI specialist at [place] as soon as possible. Return to ER for persistent or worsening symptoms. [place] [address] Ph: [phone] DIAGNOSTIC IMAGING Diagnostic Imaging Report : [id number] Signed PATIENT: NORA SILVERMAN ACCT: [id number] UNIT: [id number] : 1985 LOC: ER ROOM / BED: / AGE / SEX: 39 / M ADM STATUS: REG ER SERVICE 170 ORDERING PHYSICIAN: AMAN PARRA MD PROCEDURE(s): GBUS - GALLBLADDER REASON: RUQ pain ORDER NUMBER(s): [id number], ACCESSION NUMBER(s): [id number] EXAM: US GALLBLADDER CLINICAL HISTORY: RUQ pain TECHNIQUE: Grayscale and limited color flow doppler ultrasound of the right upper quadrant is performed. COMPARISON: None Findings: Liver measures 12.8 cm in length with normal echotexture and contour. No evidence of focal hepatic lesions or intra- or extrahepatic ductal dilatation. Common bile duct measures 0.1 cm in diameter. Normal hepatopedal flow noted within the portal vein. No perihepatic free fluid is noted. Gallbladder appears within normal limits with gallbladder wall thickness measuring 0.1 cm. 0.5 cm nonvascular gallbladder polyp versus tumefactive sludge. No evidence of shadowing calculi, biliary sludge or pericholecystic fluid. Negative sonographic Zazueta's sign. Pancreas only partially visualized due to overlying bowel gas but is otherwise unremarkable. Right kidney measures 10.3 cm with normal contours, echotexture and cortical thickness. No evidence of hydronephrosis, calculi, cystic or solid renal les ions. Partially visualized inferior vena cava unremarkable. Impression: 1. No evidence of acute right upper quadrant abnormalities. 2. 0.5 cm nonvascular gallbladder polyp versus tumefactive sludge ATED BY: AMIE RESTREPO DO DICTATED DATE/TIME: 07/01/[address] [address] Ph: [phone] DIAGNOSTIC IMAGING Diagnostic Imaging Report : [id number] Signed PATIENT: NORA SILVERMAN ACCT: [id number] UNIT: [id number] : 1985 LOC: ER ROOM / BED: / AGE / SEX: 39 / M ADM STATUS: REG ER SERVICE 170 ORDERING PHYSICIAN: AMAN PARRA MD PROCEDURE(s): ABPL - CT AB PEL WO CON-NO ORAL OR IV REASON: bilat upper quad and flank pain ORDER NUMBER(s): [id number], ACCESSION NUMBER(s): [id number] CT abdomen and pelvis without contrast INDICATION: bilat upper quad and flank pain TECHNIQUE: Serial axial images were performed through the abdomen and pelvis and then reformatted in the sagittal and coronal plane. All CT scans at this medical facility are performed using dose modulation techniques as appropriate to a performed exam including the following: Automated exposure control was utilized; adjustment of the MA and/or KvP according to patient size; and use of iterative reconstruction technique. FINDINGS: Liver and spleen are normal in size without focal mass. No renal masses, stones or hydronephrosis. No masses or enlargement of the adrenal glands or pancreas. No biliary dilatation. No gallstones. No distention of bowel loops to suggest mechanical obstruction of bowel. The appendix is normal in appearance. No free fluid. Within the pelvis, bladder is smooth walled without stones. No abnormal masses or fluid collections. IMPRESSION: 1. No evidence of urinary tract calculi or obstruction. Limited evaluation of the kidneys and bowel due to lack of IV contrast Computed Tomographic Radiation Dosimetry Report: Total CTDI vol = 5 mGy Total DLP = 258 mGy-cm Low dose protocols were performed. ATED BY: JACKI RIVERA MD DICTATED DATE/TIME: 07/01/24 2537 e-Prescriptions Dicyclomine Hcl (BENTYL CAPSULE) 10 Mg Cp 2 CAP PO Q6HP PRN, #30 CAP 11 Refills prn abdominal pain Prov: AMAN PARRA MD 07/01/24 Discharged With: Self Critical Care Note Critical Care Time?: No Stability Stability form required: No I personally scribed for AMAN PARRA MD ([email or web address]) on 07/01/24 at 18:01. Electronically submitted by Mandy Terrazas ([facility]). I personally scribed for AMAN PARRA MD ([email or web address]) on 07/01/24 at 18:02. Electronically submitted by Mandy Terrazas ([facility]). AMAN PARRA MD Jul 01, 2024 18:01
[2024-07-01 18:14] LABS: Basophils # (auto) 0 10 ^3/uL (0-0.2); Basophils % (auto) 0.3 % (0.0-2.0); Eosinophils # (auto) 0 10 ^3/uL (0-0.8); Eosinophils % (auto) 0.3 % (0.0-7.0); Hematocrit 46.1 % (41.0-53.0); Hemoglobin 16.2 g/dL (13.5-17.5); Lymphocytes # (auto) 1.6 10 ^3/uL (0.4-5.4); Lymphocytes % (auto) 25.1 % (10.0-50.0); Mean Corpuscular Hemoglobin 32.1 pg (28.0-32.0); Mean Corpuscular Hgb Conc. 35.1 g/dL (32.0-36.0); Mean Corpuscular Volume 91.4 fL (80.0-100.0); Monocytes # (auto) 0.3 10 ^3/uL (0-1.3); Monocytes % (auto) 5.4 % (0.0-12.0); Neutrophils # (auto) 4.3 10 ^3/uL (1.6-8.6); Neutrophils % (auto) 68.9 % (37.0-80.0); Nucleated Red Blood Cells % 0.2 %; Platelet Count (auto) 182 10^3/uL (140-450); Red Blood Cells 5.05 10^6/uL (4.5-5.90); Red Cell Distribution Width 12.5 % (11.8-14.3); White Blood Cell 6.2 10^3/uL (4.4-10.8)
[2024-07-01] MEDS: HYDROcodone-ACET 5/325MG TAB PO ONE (18:25)
[2024-07-01 18:31] LABS: Alanine Aminotransferase 28 U/L (7-40); Alkaline Phosphatase 75 U/L (46-116); Anion Gap 9 (5-15); BUN/Creatinine Ratio 17.9 (10.0-20.0); Blood Urea Nitrogen 22 mg/dL (9-23); Carbon Dioxide 29 mmol/L (20-31); Chloride 102 mmol/L (98-107); Glucose 83 mg/dL (74-106); Lipase 52 U/L (12-53); Potassium 4.4 mmol/L (3.5-5.1); Sodium 140 mmol/L (136-145)
[2024-07-01 18:32] LABS: Bilirubin, Total 1.1 mg/dL (0.2-1.0); Total Protein 7.4 g/dL (5.7-8.2)
[2024-07-01 18:33] LABS: Albumin 5.5 g/dL (3.2-4.8); Aspartate Aminotransferase 12 U/L (13-40); Calcium 11.2 mg/dL (8.7-10.4)
[2024-07-01] MEDS ORDERED: DICY10CA PO (19:00)
[2024-07-01 19:15] VITALS: BP 107/67; TEMP 97.8
[2024-07-01 19:18] VITALS: PULSE 67; RESP 16; O2SAT 100
== END 2024-07-01 19:27 | disposition home or self-care (01) ==
LOC: ER 12:34
DX: R10.11 Right upper quadrant pain (principal); R10.12 Left upper quadrant pain; Z87.442 Personal history of urinary calculi; Z79.899 Other long term (current) drug therapy
CPT/HCPCS: 36415; 74176; 76705; 80053; 81001; 83690; 85025

== ENCOUNTER 2024-11-08 23:37 | Emergency (ER) | payer MEDICAID ==
[~2024-11-08] VITALS: Ht 165.1 cm; Wt 62.8 kg
[~2024-11-08 23:37] MED LIST changes: +DICY10CA PO
[2024-11-09 00:28] LABS: Basophils # (auto) 0 10 ^3/uL (0-0.2); Basophils % (auto) 0.3 % (0.0-2.0); Eosinophils # (auto) 0.1 10 ^3/uL (0-0.8); Eosinophils % (auto) 1.2 % (0.0-7.0); Hematocrit 43.2 % (41.0-53.0); Hemoglobin 14.9 g/dL (13.5-17.5); Lymphocytes # (auto) 2.3 10 ^3/uL (0.4-5.4); Lymphocytes % (auto) 32.1 % (10.0-50.0); Mean Corpuscular Hemoglobin 31.5 pg (28.0-32.0); Mean Corpuscular Hgb Conc. 34.4 g/dL (32.0-36.0); Mean Corpuscular Volume 91.8 fL (80.0-100.0); Monocytes # (auto) 0.5 10 ^3/uL (0-1.3); Monocytes % (auto) 7.3 % (0.0-12.0); Neutrophils # (auto) 4.3 10 ^3/uL (1.6-8.6); Neutrophils % (auto) 59.1 % (37.0-80.0); Nucleated Red Blood Cells % 0.1 %; Platelet Count (auto) 154 10^3/uL (140-450); Red Blood Cells 4.71 10^6/uL (4.5-5.90); Red Cell Distribution Width 12.5 % (11.8-14.3); White Blood Cell 7.3 10^3/uL (4.4-10.8)
[2024-11-09 00:31] LABS: Chloride 105 mmol/L (98-107); Potassium 4.3 mmol/L (3.5-5.1); Sodium 143 mmol/L (136-145)
[2024-11-09 00:31] LABS: Urine Bacteria None Seen /hpf (None Seen)
[2024-11-09 00:32] LABS: Anion Gap 8 (5-15); Carbon Dioxide 30 mmol/L (20-31)
[2024-11-09 00:33] LABS: Calcium 9.8 mg/dL (8.7-10.4)
[2024-11-09 00:38] LABS: Urine Blood Negative /uL (Negative); Urine Clarity Clear (Clear); Urine Color Colorless (Yellow); Urine Protein, UAD Negative (Negative); Urine Specific Gravity 1.005 (1.001-1.035); Urine Squamous Epithelial Cell None Seen /hpf (<5); Urine Urobilinogen Normal (Negative); Urine WBC < 1 /HPF (0-3)
[2024-11-09 00:38] LABS: BUN/Creatinine Ratio 21.1 (10.0-20.0)
--- NOTE | 2024-11-09 00:44 | ED.PDOC ---
General HPI Comments 39 year old male came to ER for urinary issues. Patient has history of pancreatic and kidney problems. States recently he has been having generalized weakness, weight loss, any noted that his urine has been "foamy" recently. Denies any fever, nausea or vomiting. Patient is concerned they may be developing kidney failure issues. Vital signs were stable on arrival. Chief Complaint: Urinary Time Seen by MD: 00:43 Primary Care Provider: UNK Reviewed notes: Nurses Notes Allergies: Coded Allergies: NO KNOWN ALLERGIES (Unverified , 06/02/18) Home Meds Active Scripts Dicyclomine Hcl (BENTYL CAPSULE) 10 Mg Cp, 2 CAP PO Q6HP PRN, #30 CAP 11 Refills prn abdominal pain Prov:AMAN PARRA MD 07/01/24 Pantoprazole Sodium Sesquihydr (Protonix) 40 Mg Tab, 40 MG PO DAILY for 10 Days, #10 TAB Prov:QUEENIE HATHAWAY MD 10/17/22 Gabapentin (Gabapentin) 100 Mg Cap, 100 MG PO BID, #14 TAB Prov:SHERYL ANDREW MD 10/06/19 Thiamine Hcl (Thiamine) 50 Mg Cap, 50 MG PO DAILY, #30 CAP Prov:SHERYL ANDREW MD 10/06/19 Folic Acid (Folic Acid) 1 Mg Tab, 1 MG PO DAILY, #30 TAB Prov:SHERYL ANDREW MD 10/06/19 Metronidazole (Flagyl) 500 Mg Tab, 500 MG PO Q8H, #21 TAB Prov:SHERYL ANDREW MD 10/06/19 Levofloxacin (Levaquin) 500 Mg Tab, 500 MG PO DAILY, #7 TAB Prov:SHERYL ANDREW MD 10/06/19 Chlordiazepoxide Hcl (Ni-1) (I (Librium) 10 Mg Cap, 1 DOSE PO UD, #35 CAP 30mg [id number] 30mg [id number] 20mg [id number] 20mg [id number] 10mg [id number] 10mg [id number] Prov:SHERYL ANDREW MD 10/06/19 Information Source: Patient Mode of Arrival: Ambulatory Severity: Moderate Inability to void: Mild Timing: Days Duration: Intermittent Has not urinated for: Minutes History of: UTI, Kidney stone, Other (Pancreatitis) associated signs and symptoms: Other ( foamy urine) Past Medical History PAST MEDICAL HISTORY: Kidney Stones Past Medical History (Other): Pancreatitis Surgical History: Denies all surgeries Family History Family History: Family hx of HTN Social History Smoker: Non-Smoker, Quit Less Than 1 Year, Other Alcohol: Sober Drugs: Marijuana Lives In: Home Constitutional: reports: weakness; denies: chills, diaphoresis, fatigue, fever, malaise, sweats, others EENTM: denies: blurred vision, double vision, ear bleeding, ear discharge, ear drainage, ear pain, ear ringing, eye pain, eye redness, hearing loss, mouth pain, mouth swelling, nasal discharge, nose bleeding, nose congestion, nose pain, photophobia, tearing, throat pain, throat swelling, voice changes, others Respiratory: denies: cough, hemoptysis, orthopnea, SOB at rest, shortness of breath, SOB with excertion, stridor, wheezing, others Cardiovascular: denies: chest pain, dizzy spells, diaphoresis, Dyspnea on exertion, edema, irregular heart beat, left arm pain, lightheadedness, palpitations, PND, syncope, others Gastrointestinal: denies: abdomen distended, abdominal pain, blood streaked bowels, constipated, diarrhea, dysphagia, difficulty swallowing, hematemesis, melena, nausea, poor appetite, poor fluid intake, rectal bleeding, rectal pain, vomiting, others Genitourinary: reports: others (Foamy urine); denies: burning, dysuria, flank pain, frequency, hematuria, incontinence, penile discharge, penile sore, pain, testicle pain, testicle swelling, urgency Neurological: denies: dizziness, fainting, headache, left sided numbness, left sided weakness, numbness, paresthesia, pre-existing deficit, right sided numbness, right sided weakness, seizure, speech problems, tingling, tremors, weakness, others Musculoskeletal: denies: back pain, gout, joint pain, joint swelling, muscle pain, muscle stiffness, neck pain, others Integumetry: denies: bruises, change in color, change in hair/nails, dryness, laceration, lesions, lumps, rash, wounds, others Allergic/Immunocompromised: denies: Difficulty Healing, Frequent Infections, Hives, Itching, others Hematologic/Lymphatic: denies: anemia, blood clots, easy bleeding, easy bruising, swollen glands, others Endocrine: denies: excessive hunger, excessive sweating, excessive thirst, excessive urination, flushing, intolerance to cold, intolerance to heat, unexplained weight gain, unexplained weight loss, others Psychiatric: denies: anxiety, bipolar disorder, depression, hopeless, panic disorder, schizophrenia, sleepless, suicidal, others Physical Exam General Appearance: Mild Distress (Moderate distress related to anxiety and chronic abdominal pain concerns due to his pancreatitis.), Normal HEENT: Normal ENT Inspection, Pharynx Normal, TMs Normal Neck: Full Range of Motion, Non-Tender, Normal, Normal Inspection Respiratory: Chest Non-Tender, Lungs Clear, No Accessory Muscle Use, No Respiratory Distress, Normal Breath Sounds Cardiovascular: No Edema, No JVD, No Murmur, No Gallop, Normal Peripheral Pulses, Regular Rate/Rhythm Breast Exam: Deferred Gastrointestinal: No Organomegaly, Non Tender, No Pulsatile Mass, Normal Bowel Sounds, Soft Genitalia: Deferred Pelvic: Deferred Rectal: Deferred Extremities: No calf tenderness, Normal capillary refill, Normal inspection, Normal range of motion, Non-tender, No pedal edema Musculoskeletal : Apperance: Normal Neurologic: Alert, No Motor Deficits, Normal Affect, Normal Mood, No Sensory Deficits Cerebellar Function: Normal Reflexes: Normal Skin: Dry, Normal Color, Warm Lymphatic: No Adenopathy Was a procedure done? Was a procedure done?: No Differential Diagnosis Kidney stone (Female): N/A Kidney stone (Male): Pyelonephritis, Renal failure, Strain, Urinary obstruction, Urolithiasis, Renal infarction, Urinary tract infection Urinary Problem (Male): Urethritis, UTI X-Ray, Labs, Meds, VS Vital Signs Date Time Temp Pulse Resp B/P (MAP) Pulse Ox O2 Delivery O2 Flow Rate FiO2 11/09/24 00:11 98.2 55 18 104/62 (76) 98 98.2 Lab Test 11/09/24 00:16 11/09/24 00:00 Range/Units White Blood Count 7.3 4.4-10.8 10^3/uL Red Blood Count 4.71 4.5-5.90 10^6/uL Hemoglobin 14.9 13.5-17.5 g/dL Hematocrit 43.2 41.0-53.0 % Mean Corpuscular Volume 91.8 80.0-100.0 fL Mean Corpuscular Hemoglobin 31.5 28.0-32.0 pg Mean Corpuscular Hemoglobin Concent 34.4 32.0-36.0 g/dL Red Cell Distribution Width 12.5 11.8-14.3 % Platelet Count 154 140-450 10^3/uL Mean Platelet Volume 9.3 6.9-10.8 fL Neutrophils (%) (Auto) 59.1 37.0-80.0 % Lymphocytes (%) (Auto) 32.1 10.0-50.0 % Monocytes (%) (Auto) 7.3 0.0-12.0 % Eosinophils (%) (Auto) 1.2 0.0-7.0 % Basophils (%) (Auto) 0.3 0.0-2.0 % Neutrophils # (Auto) 4.3 1.6-8.6 10 ^3/uL Lymphocytes # (Auto) 2.3 0.4-5.4 10 ^3/uL Monocytes # (Auto) 0.5 0-1.3 10 ^3/uL Eosinophils # (Auto) 0.1 0-0.8 10 ^3/uL Basophils # (Auto) 0 0-0.2 10 ^3/uL Nucleated Red Blood Cells 0.1 % Sodium Level 143 136-145 mmol/L Potassium Level 4.3 3.5-5.1 mmol/L Chloride Level 105 98-107 mmol/L Carbon Dioxide Level 30 20-31 mmol/L Anion Gap 8 5-15 Blood Urea Nitrogen 26 H 9-23 mg/dL Creatinine 1.23 0.700-1.30 mg/dL Glomerular Filtration Rate Calc 76 >90 mL/min BUN/Creatinine Ratio 21.1 H 10.0-20.0 Serum Glucose 69 L 74-106 mg/dL Calcium Level 9.8 8.7-10.4 mg/dL Urine Color Colorless Yellow Urine Clarity Clear Clear Urine pH 6.0 5.0-9.0 Urine Specific [place] 1.005 1.001-1.035 Urine Protein Negative Negative Urine Ketones Negative Negative Urine Blood Negative Negative /uL Urine Nitrite Negative Negative Urine Bilirubin Negative Negative Urine Urobilinogen Normal Negative mg/dL Urine Leukocyte Esterase Negative Negative /uL Urine RBC None seen 0 - 3 /hpf Urine Microscopic WBC < 1 0-3 /HPF Urine Squamous Epithelial Cells None seen <5 /hpf Urine Bacteria None seen None Seen /hpf Urine Glucose Normal Normal mg/dL X-Ray, Labs, Meds, VS Comment All studies performed the ED were evaluated by me personally. Serum and urine studies were completely unremarkable for any concerning events. Advised patient to continue follow up with his doctor as needed. Time of 1ST Reevaluation: 01:06 Reevaluation 1ST: Unchanged Consultation: PCP Patient Education/Counseling: Diagnosis, Treatment Family Education/Counseling: Diagnosis, Treatment, No Family Present SEPSIS Sepsis Screen Date sepsis recognized/suspect: Nov 09, 2024 Time Sepsis recognized/suspect: 2344 Recent Procedure: No On Antibiotic Therapy: No Respiratory Rate >20: No Heart Rate >90: No Temp<36 C (96.8 F) or >38.3 C: No SBP <90 or MAP <65 mmHG: No New Acute Mental Status Change: No Is the patient on CPAP, BIPAP,: No Vital Signs Date Time Temp Pulse Resp B/P (MAP) Pulse Ox O2 Delivery O2 Flow Rate FiO2 11/09/24 00:11 98.2 55 18 104/62 (76) 98 98.2 Laboratory Tests Test 11/09/24 00:16 White Blood Count 7.3 10^3/uL (4.4-10.8) Departure 1 Departure Time of Disposition: 01:06 Impression: Primary Impression: Foamy urine Disposition: HOME / SELF CARE / HOMELESS Condition: Stable Additional Instructions: Advised patient that today's laboratories were unremarkable. Advised follow up with his primary care provider for further evaluation as needed. Discharged With: Self Critical Care Note Critical Care Time?: No Stability Stability form required: No Heart Score Heart Score: Heart Score Response (Comments) Value History N/A 0 EKG N/A 0 Age N/A 0 Risk Factors N/A 0 Troponin N/A 0 Total 0 I personally scribed for RIK ROSENBAUM PAC ([email or web address]) on 11/09/24 at 00:44. Electronically submitted by Cade Lynn ([email or web address]). RIK ROSENBAUM PAC Nov 09, 2024 00:44
[2024-11-09 00:52] LABS: Blood Urea Nitrogen 26 mg/dL (9-23); Glucose 69 mg/dL (74-106)
[2024-11-09 03:18] VITALS: BP 107/69; PULSE 52; RESP 18; TEMP 98
[2024-11-09 03:20] VITALS: O2SAT 98
[2024-11-09] MEDS: IBUPROFEN 800 MG TAB PO ONE (03:37)
== END 2024-11-09 03:55 | disposition home or self-care (01) ==
LOC: ER 23:45
DX: R82.998 Other abnormal findings in urine (principal); F12.90 Cannabis use, unspecified, uncomplicated; Z87.891 Personal history of nicotine dependence; F10.90 Alcohol use, unspecified, uncomplicated; Z87.440 Personal history of urinary (tract) infections; Z79.899 Other long term (current) drug therapy; Z87.898 Personal history of other specified conditions; Y90.9 Presence of alcohol in blood, level not specified
CPT/HCPCS: 36415; 80048; 81001; 85025